=== PATIENT | male | born 1955 | race Caucasian/White ===

== ENCOUNTER 2021-11-18 09:03 | Emergency (ER) | payer MEDICAID, SELFPAY ==
--- NOTE | 2021-11-18 09:05 | ED.SOB ---
HPI - SOB/Dyspnea General Chief Complaint: Upper Respiratory Infection Stated Complaint: right side pain/sob Time Seen by Provider: 11/18/21 09:05 Source: patient Mode of arrival: ambulatory Limitations: no limitations History of Present Illness HPI Narrative: Mr. Beck is a 66-year-old male patient presenting to the clinic today with complaints of shortness of breath and right sided pain x2 to 3 days. He reports he also has not voided for 4 days. Reports that he just was released from [facility] on October 27 and was admitted on the for encephalopathy, congestive heart failure, and acute kidney injury. He reports that he had received 22 bags of IV fluids time. He reports that his right-sided chest pain is worse with inspiration and the pain is sharp. He denies having any productive cough. He denies any fever or chills. He is not a very good historian regarding his past medical care and history. Related Data Home Medications Medication Instructions Recorded Confirmed Unable to Obtain Home Medications 11/18/21 11/18/21 Allergies Allergy/AdvReac Type Severity Reaction Status Date / Time No Known Allergies Allergy Verified 11/18/21 09:18 Review of Systems Review of Systems: Pertinent positives per HPI. Patient denies any fever, chills, rash, headache, visual changes, dizziness, cough, runny nose, sore throat, palpitations, nausea, vomiting, diarrhea, constipation, abdominal pain, or any urinary issues. PMFSH Comments At the time of my signature, I reviewed and agree with the nursing past medical, surgical, social, and family history. There is no relevant family history pertinent to the patient complaint. Exam Narrative: General: Well-developed, well-nourished, in no apparent distress Head: Normocephalic, atraumatic. Cardio: Regular rate and rhythm, s1 and s2 normal, no murmur appreciated. Resp: Diminished in the lower bases otherwise clear, no rhonchi, rales, wheezing or rubs. Extremities: No deformity, 1+ pitting edema to bilateral lower extremities, no cyanosis, capillary refill less than 2 seconds, peripheral pulses palpable and strong. Integumentary: [place], warm, and dry, intact without lesion, no rashes. Course Course Emergency Course: Portions of this record may have been created with voice recognition software. Level of Care: Express Care Visit Vital Signs Vital signs: Vital Signs Temperature 36.9 C 11/18/21 09:11 Pulse Rate 82 11/18/21 09:11 Respiratory Rate 24 H 11/18/21 09:11 Blood Pressure 119/72 11/18/21 09:11 Pulse Oximetry 98 11/18/21 09:11 Temperature 36.9 C 11/18/21 09:11 Pulse Rate 82 11/18/21 09:11 Respiratory Rate 24 H 11/18/21 09:11 Blood Pressure 119/72 11/18/21 09:11 Pulse Oximetry 98 11/18/21 09:11 Vital signs reviewed Transfer Transfered to: [facility] Transfer rationale: Right-sided chest pain, no urine output x4 days, and shortness of breath. Accepting physician: Dr. Pressley Transfer comments: Patient transferred MDM - SOB/Dyspnea MDM Narrative Medical decision making narrative: At the time of visit patient is resting comfortably on the exam table. EKG was performed and was sinus rhythm without ectopy. Heart rate was 77 bpm. Patient is complaining of right-sided chest pain that is worse with inspiration, no urine output x4 days, and shortness of breath. Recommend transfer to ER for further evaluation and patient voiced understanding. Report was called to Dr. Mata at [facility] ER and he accepted the patient. Patient agrees to transfer Differential Diagnosis Differential diagnosis: Likely congestive heart failure, community acquired pneumonia and other (Atypical chest pain) ECG Data EKG #1: Attestation: I personally reviewed and interpreted this ECG as follows: ECG completion date: 11/18/21 Prior ECG tracings: not available for review Interpretation: EKG was normal sinus rhythm
[2021-11-18 09:11] VITALS: BP 119/72; PULSE 82; RESP 24; TEMP 36.9; O2SAT 98
--- NOTE | 2021-11-18 09:18 | ECG_ITS ---
Measurements Intervals [place] Rate: 77 P: 55 GA: 166 QRS: -2 QRSD: 98 T: 51 QT: 366 QTc: 416 Interpretive Statements SINUS RHYTHM BASELINE ARTIFACT- I, II, III, AVR, AVL, AVF, V1-V4 NORMAL ECG Electronically Signed On 11-18-2021 10:00:44 CDT by Tray Simon D.O.
== END 2021-11-18 09:34 | disposition short-term general hospital (02) ==
LOC: EXPBETH 09:08
PROVIDERS: Emergency Provider Nurse Practitioner Family
DX: R06.02 Shortness of breath (principal); R34 Anuria and oliguria; R07.1 Chest pain on breathing; E11.9 Type 2 diabetes mellitus without complications; G62.9 Polyneuropathy, unspecified; I50.9 Heart failure, unspecified
CPT/HCPCS: 93005; 99213; G0463